=== PATIENT | male | born 1985 | race Caucasian/White ===

== ENCOUNTER 2018-11-21 19:05 | Outpatient (CLI) | payer SELFPAY | END 2018-11-21 19:06 | disposition critical access hospital (66) | LOC: EMS 19:05 | PROVIDERS: ATTEND Surgery | DX: S61.412A Laceration without foreign body of left hand, initial encounter (principal); W26.0XXA Contact with knife, initial encounter; Y92.009 Unspecified place in unspecified non-institutional (private) residence as the place of occurrence of the external cause | CPT/HCPCS: A0425; A0429 ==

== ENCOUNTER 2018-11-21 19:32 | Emergency (ER) | payer SELFPAY ==
[2018-11-21] MEDS ORDERED: TETANUS/DIPHTHERIA/PERTUSSIS 0.5 ML SYRINGE IM ONE (19:45)
[2018-11-21] MEDS ORDERED: HYDROcod/ACETAM 5/325 MG TABLET PO STA (19:54)
[2018-11-21] MEDS ORDERED: LIDOCAINE 2% 10 ML MDV SUBQ STA ×2 (19:55→20:28)
--- NOTE | 2018-11-21 20:05 | ED Physician Documentation ---
PD HPI UPPER EXT INJURY - Stated complaint Stated Complaint: HAND LAC - Chief complaint Chief Complaint: Laceration - History obtained from History obtained from: Patient - History of Present Illness Location: Left, Hand Where injury occurred: Home Timing - onset: Today Improved by: Nothing Associated symptoms: Numbness (R thumb) Contributing factors: No: Anticoagulated Similar symptoms before: Has not had sx before Recently seen: Not recently seen - Additonal information Additional information: This is a 33-year-old presents with complaints that he got caught in the left palm by a knife as he was slicing onions. The skin of vague about what actually happened but does admit to drinking alcohol. The injury occurred about an hour and a half prior to presentation he immediately called 911 they came and dressed the wound and brought him in. He complains that his thumb feels "kind of numb". 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 He is not allergic to any medications. His last tetanus vaccine was 2 years ago. Review of Systems Musculoskeletal: reports: Extremity pain Neurologic: reports: Numbness Psychiatric: denies: Suicidal PD PAST MEDICAL HISTORY - Past Medical History GI: GERD Musculoskeletal: Chronic back pain - Past Surgical History Past Surgical History: No - Present Medications Home Medications: Ambulatory Orders Medication Instructions Recorded Confirmed cephALEXin [Keflex] 250 mg PO Q6H #28 capsule 11/21/18 - Allergies Allergies/Adverse Reactions: Allergies Allergy/AdvReac Type Severity Reaction Status Date / Time No Known Drug Allergies Allergy Verified 11/21/18 19:45 - Social History Does the pt smoke?: Yes Smoking Status: Current every day smoker Does the pt drink ETOH?: Yes Does the pt have substance abuse?: Yes - Immunizations Immunizations are current?: Yes - POLST Patient has POLST: No PD ED PE NORMAL - Vitals Vital signs reviewed: Yes - General General: Alert and oriented X 3, No acute distress, Well developed/nourished - Cardiac Cardiac: RRR - Respiratory Respiratory: No respiratory distress - Derm Derm: Other (There is a deep laceration 7-8 cm long on the left palm that cuts across the thenar eminence to the webspace between the thumb and index finger. There is a parallel laceration distal to this that measures approximately 4-1/2 cm.) - Extremities Extremities: Other (Patient is able to abduct, adduct and oppose the thumb. F lexion intact at the MCP and IP of thumb and MCP, PIP and DIP of remaining digits.) - Neuro Neuro: Alert and oriented X 3, No motor deficit, No sensory deficit, Normal speech, Other (2 point discrimination intact in thumb and all 4 fingers) Results - Vitals Vitals: Vital Signs - 24 hr 11/21/18 11/21/18 19:35 21:55 Temperature 37 C 37.2 C Heart Rate 118 H 83 Respiratory 20 16 Rate Blood Pressure 130/71 150/91 H O2 Saturation 98 98 Oxygen O2 Source Room air Procedures - Laceration (location) Hand left Palmar Length in cm: 11 (1 deep 7 cm lac and 1 more superficial 4 cm laceration distally) Wound type: Linear, Into muscle (The muscle belly of the hyperthenar eminence is significantly disrupted), Clean Neurovascular status: Sensory intact, Motor intact, Vascular intact Tendon involvement: Tendon intact Anesthesia: Lidocaine 2%, Marcaine 0.25% Wound Preparation: Chlorhexadine, Irrigated copiously NS, Wound explored, To the base. No: FB identified Skin layer closure: Nylon, Size #-0 - enter number (5) Other: Patient tolerated well, No complications, Neurovascular intact, Dressing applied, Tetanus UTD PD MEDICAL DECISION MAKING - ED course ED course: Tendons appear to be intact and I did not see any lacerated tendons in the wound. The hyperthenar eminence was pretty significantly disrupted but he is able to oppose the thumb abducted and flex it. Wound was cleansed and the skin was approximated. I spoke to the hand surgeon, Dr Min,At [facility] and they are happy to see the patient in follow-up to see if he requires any further surgical intervention. The patient was instructed to follow-up with them. He did receive Ancef IV and placed on Keflex for 5 days. He was given a hydrocodone prepack at discharge. Departure - Departure Disposition: 01 Home, Self Care Clinical Impression: Laceration of hand Condition: Good Instructions: ED Laceration Hand Follow-Up: [place] [Other] Prescriptions: cephALEXin [Keflex] 250 mg PO Q6H #28 capsule Comments: Take the Keflex as prescribed. You have a few doses of hydrocodone that you can use if needed for pain. Do your best to keep our bandage that we put on clean and dry so that it can stay on for 24 to 48 hours. After removing the bandage you can clean it with soap and water but keep the wound covered during the day. I have arranged follow-up at the [facility] hand clinic. You need to call them to arrange for a appointment at [phone]. Discharge Date/Time: 11/21/18 22:00
[2018-11-21] MEDS ORDERED: BUPIVACAINE 0.25% PF 30 ML VIAL SUBQ STA (20:29)
[2018-11-21] MEDS ORDERED: LIDOCAINE 2% 10 ML MDV ONE (20:42)
[2018-11-21] MEDS ORDERED: ceFAZolin 1 GM in SODIUM CHLORIDE 0.9% MINIBAG 100 ML IV STA (21:16)
[2018-11-21] MEDS ORDERED: CEPHALEXIN 250 MG Prepack 8 CAP BOTTLE PO STA (21:44)
[2018-11-21] MEDS ORDERED: HYDROcod/ACET 5/325 Prepack 4 PO STA (21:44)
[2018-11-21 21:56] VITALS: BP 150/91
== END 2018-11-21 22:00 | disposition home or self-care (01) ==
LOC: EDUNIT# → ED 19:32
DX: S61.412A Laceration without foreign body of left hand, initial encounter (principal); S66.822A Laceration of other specified muscles, fascia and tendons at wrist and hand level, left hand, initial encounter; W26.0XXA Contact with knife, initial encounter; Y93.G1 Activity, food preparation and clean up; Y92.009 Unspecified place in unspecified non-institutional (private) residence as the place of occurrence of the external cause; F17.200 Nicotine dependence, unspecified, uncomplicated
CPT/HCPCS: 12044; 96374; 99283; 99284; A9270

== ENCOUNTER 2018-12-12 12:05 | Emergency (ER) | payer MEDICAID ==
[2018-12-12 12:23] VITALS: BP 168/89
--- NOTE | 2018-12-12 14:13 | ED Physician Documentation ---
PD HPI UPPER EXT INJURY - Stated complaint Stated Complaint: STITCH REMOVAL L HAND - Chief complaint Chief Complaint: Ext Problem - History obtained from History obtained from: Patient - History of Present Illness Location: Left (Lacerated his left, nondominant hand 20 days ago. He did not follow-up at [facility] as recommended. He is here for suture removal. Notes persistent numbness in the left thumb.) Review of Systems Constitutional: reports: Reviewed and negative Throat: reports: Reviewed and negative Cardiac: reports: Reviewed and negative PD PAST MEDICAL HISTORY - Past Medical History GI: GERD Musculoskeletal: Chronic back pain - Past Surgical History Past Surgical History: No - Present Medications Home Medications: Ambulatory Orders Medication Instructions Recorded Confirmed cephALEXin [Keflex] 250 mg PO Q6H #28 capsule 11/21/18 Methylprednisolone [Medrol Dose 1 each PO .PACKAGEINSTRUCTIONS 6 12/12/18 Pack] Days #1 each - Allergies Allergies/Adverse Reactions: Allergies Allergy/AdvReac Type Severity Reaction Status Date / Time No Known Drug Allergies Allergy Verified 12/12/18 12:17 - Social History Does the pt smoke?: Yes Smoking Status: Current every day smoker Does the pt drink ETOH?: Yes Does the pt have substance abuse?: Yes - Immunizations Immunizations are current?: Yes - POLST Patient has POLST: No PD ED PE NORMAL - Vitals Vital signs reviewed: Yes - General General: Alert and oriented X 3, No acute distress - Extremities Extremities: Other (The left hand incision is well approximated, But there is some desquamation on either side of the wound. All the sutures removed during examination he has full range of motion but diminished sensation in the thumb.) - Neuro Neuro: Alert and oriented X 3, Normal speech Results - Vitals Vitals: Vital Signs - 24 hr 12/12/18 12:17 Temperature 36.9 C Heart Rate 90 Respiratory 16 Rate Blood Pressure 168/89 H O2 Saturation 100 Oxygen O2 Source Room air PD MEDICAL DECISION MAKING - ED course ED course: He really wanted to go back to work, he works as a facilities clerk, the wound does not quite look ready for that yet. I recommended that he work with the right hand only pending hand surgery follow-up. Departure - Departure Disposition: 01 Home, Self Care Clinical Impression: Laceration of hand Qualifiers: Encounter type: initial encounter Foreign body presence: without foreign body Laterality: left Qualified Code(s): S61.412A - Laceration without foreign body of left hand, initial encounter Condition: Good Record reviewed to determine appropriate education?: Yes Prescriptions: Methylprednisolone [Medrol Dose Pack] 1 each PO .PACKAGEINSTRUCTIONS 6 Days #1 each Comments: As discussed, we have recommended that she follow-up with the hand surgery center at [facility]. You have failed to do so. I am worried about her long- term healing until you see the hand surgeon. You should call them today for the next available appointment. [phone]. Do not submerge to the left hand. Wear the Velcro wrist splint at all times except when in the shower. Or washing your hands. Your blood pressure was elevated today on check into the emergency department. This does not mean that you have hypertension, it is a common phenomenon to come to the emergency department and have elevated blood pressure. I recommend that you see your primary care physician within the week to have it rechecked when you are feeling better. Forms: Activity restrictions Discharge Date/Time: 12/12/18 14:33
== END 2018-12-12 14:33 | disposition home or self-care (01) ==
LOC: ED 12:05
DX: S61.412D Laceration without foreign body of left hand, subsequent encounter (principal); X58.XXXD Exposure to other specified factors, subsequent encounter; R03.0 Elevated blood-pressure reading, without diagnosis of hypertension; F17.200 Nicotine dependence, unspecified, uncomplicated
CPT/HCPCS: 99282

== ENCOUNTER 2019-06-14 03:24 | Emergency (ER) | payer MEDICAID ==
[2019-06-14 03:50] LABS: BASOPHILS # (AUTO) 0.2 10^3/uL (0.0-0.1); BASOPHILS % (AUTO) 1.2 %; EOSINOPHILS # (AUTO) 0.2 10^3/uL (0.0-0.7); EOSINOPHILS % (AUTO) 1.5 %; HGB - HEMOGLOBIN 16.7 g/dL (14.0-18.0); LYMPHOCYTES # (AUTO) 1.7 10^3/uL (1.5-3.5); LYMPHOCYTES % (AUTO) 12.1 %; MEAN CORPUSCULAR VOLUME 94.3 fL (80.0-94.0); MEAN PLATELET VOLUME 9.9 fL (7.4-11.4); MONOCYTES # (AUTO) 0.9 10^3/uL (0.0-1.0); MONOCYTES % (AUTO) 6.3 %; NEUTROPHILS # (AUTO) 10.9 10^3/uL (1.5-6.6); NEUTROPHILS % (AUTO) 78.3 %; PLT - PLATELET COUNT 254 10^3/uL (130-450); RED BLOOD COUNT 5.06 10^6/uL (4.70-6.10); RED CELL DISTRIBUTION WIDTH 12.3 % (12.0-15.0); WHITE BLOOD COUNT 13.9 x10^3/uL (4.8-10.8)
[2019-06-14 04:02] LABS: ACETAMINOPHEN < 10 ug/mL (10-30); ALBUMIN 4.5 g/dL (3.2-5.5); ALBUMIN/GLOBULIN RATIO 1.2 (1.0-2.2); ALKALINE PHOSPHATASE 79 IU/L (42-121); ALT ALANINE AMINOTRANSFERASE 14 IU/L (10-60); AST ASPARTATE AMINOTRANSFERASE 22 IU/L (10-42); BILIRUBIN,TOTAL 0.4 mg/dL (0.2-1.0); BUN - BLOOD UREA NITROGEN 11 mg/dL (6-20); CALCIUM 8.9 mg/dL (8.5-10.3); CARBON DIOXIDE - CO2 22 mmol/L (21-32); CHLORIDE 107 mmol/L (101-111); CREATININE 0.8 mg/dL (0.6-1.2); GLUCOSE 114 mg/dL (70-100); LIPASE 21 U/L (22-51); SALICYLATE < 6.0 mg/dL; SODIUM 140 mmol/L (135-145); TOTAL PROTEIN 8.4 g/dL (6.7-8.2)
[2019-06-14 04:09] LABS: MUDS CUTOFF CONCENTRATIONS CUTOFF CONC BELOW:
[2019-06-14 04:12] LABS: BILIRUBIN,URINE NEGATIVE (NEGATIVE); GLUCOSE, URINE (UA) NEGATIVE (NEGATIVE); KETONES,URINE (UA) NEGATIVE (NEGATIVE); LEUKOCYTE ESTERASE, URINE NEGATIVE (NEGATIVE); NITRITE,URINE NEGATIVE (NEGATIVE); OCCULT BLOOD,URINE NEGATIVE (NEGATIVE); PROTEIN,URINE NEGATIVE (NEGATIVE); UROBILINOGEN,URINE 0.2 (NORMAL) E.U./dL (NORMAL)
[2019-06-14 04:14] LABS: CLARITY,URINE CLEAR (CLEAR)
--- NOTE | 2019-06-14 04:15 | ED Physician Documentation ---
PD HPI MHE - Stated complaint Stated Complaint: MHE - Chief complaint Chief Complaint: MHE - History obtained from History obtained from: Patient, Police - History of Present Illness Primary symptom: Suicidal ideation, Depression. No: Suicide attempt Timing - onset: Chronic (with worse symptoms the past few weeks) Contributing factors: Other (having difficulties with people he lives with. Also financial. He states he has not had any medications or counseling for about 10 years. He does have intermittent drug use. He has fairly regular alcohol use. He denies alcohol withdrawal symptoms if he does not drink for a bit) Similar symptoms before: Diagnosis (depression) Recently seen: Not recently seen Review of Systems Constitutional: denies: Fever, Chills Nose: denies: Rhinorrhea / runny nose, Congestion Throat: denies: Sore throat Respiratory: denies: Dyspnea, Cough GI: denies: Vomiting, Diarrhea : denies: Dysuria Skin: denies: Rash Musculoskeletal: denies: Back pain Neurologic: denies: Generalized weakness, Altered mental status, Headache, Head injury Psychiatric: reports: Depressed, Suicidal, Anxiety. denies: Insomnia Endocrine: denies: Weight loss Immunocompromised: denies: Immunocompromised PD PAST MEDICAL HISTORY - Past Medical History Past Medical History: Yes Cardiovascular: None Respiratory: None GI: GERD Psych: Depression, Anxiety, Obsessive compulsive disorder Musculoskeletal: Chronic back pain - Past Surgical History Past Surgical History: No - Present Medications Home Medications: Ambulatory Orders Medication Instructions Recorded Confirmed No Known Home Medications 06/14/19 06/14/19 - Allergies Allergies/Adverse Reactions: Allergies Allergy/AdvReac Type Severity Reaction Status Date / Time No Known Drug Allergies Allergy Verified 06/14/19 03:55 - Social History Does the pt smoke?: Yes Smoking Status: Current every day smoker Does the pt drink ETOH?: Yes ETOH Use: Beer, Liquor Does the pt have substance abuse?: Yes Substance Use and Type: Marijuana, Meth, Heroin - Immunizations Immunizations are current?: Yes - POLST Patient has POLST: No PD ED PE NORMAL - Vitals Vital signs reviewed: Yes - General General: Alert and oriented X 3, No acute distress, Well developed/nourished - HEENT HEENT: Moist mucous membranes, Pharynx benign - Neck Neck: Supple, no meningeal sign, No adenopathy, Thyroid normal - Cardiac Cardiac: RRR, No murmur - Respiratory Respiratory: Clear bilaterally - Abdomen Abdomen: Soft, Non tender - Male Male : Deferred - Derm Derm: Normal color, Warm and dry - Extremities Extremities: Normal ROM s pain, No edema - Neuro Neuro: Alert and oriented X 3, 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, No motor deficit, No sensory deficit Eye Opening: Spontaneous Motor: Obeys Commands Verbal: Oriented GCS Score: 15 - Psych Psych: No: Normal affect (somewhat flat) Results - Vitals Vitals: Vital Signs - 24 hr 06/14/19 06/14/19 06/14/19 03:20 06:33 12:28 Temperature 36.8 C 36.6 C Heart Rate 100 96 95 Respiratory 18 16 12 Rate Blood Pressure 148/69 H 148/107 H 140/91 H O2 Saturation 97 95 98 06/14/19 17:33 Temperature 36.8 C Heart Rate 87 Respiratory 16 Rate Blood Pressure 133/80 H O2 Saturation 100 Oxygen O2 Source Room air - Labs Labs: Laboratory Tests 06/14/19 06/14/19 06/14/19 03:36 03:40 03:40 WBC 13.9 H RBC 5.06 Hgb 16.7 Hct 47.7 MCV 94.3 H MCH 33.0 H MCHC 35.0 RDW 12.3 Plt Count 254 MPV 9.9 Neut # (Auto) 10.9 H Lymph # (Auto) 1.7 [place] # (Auto) 0.9 Eos # (Auto) 0.2 Baso # (Auto) 0.2 H Absolute Nucleated RBC 0.00 Nucleated RBC % 0.0 Sodium 140 Potassium 3.6 Chloride 107 Carbon Dioxide 22 Anion Gap 11.0 BUN 11 Creatinine 0.8 Estimated GFR (MDRD) 112 Glucose 114 H Calcium 8.9 Total Bilirubin 0.4 AST 22 ALT 14 Alkaline Phosphatase 79 Total Protein 8.4 H Albumin 4.5 Globulin 3.9 Albumin/Globulin Ratio 1.2 Lipase 21 L TSH Urine Color YELLOW Urine Clarity CLEAR Urine pH 5.0 Ur Specific [place] >=1.030 H Urine Protein NEGATIVE Urine Glucose (UA) NEGATIVE Urine Ketones NEGATIVE Urine Occult Blood NEGATIVE Urine Nitrite NEGATIVE Urine Bilirubin NEGATIVE Urine Urobilinogen 0.2 (NORMAL) Ur Leukocyte Esterase NEGATIVE Ur Microscopic Review NOT INDICATED Urine Culture Comments NOT INDICATED Salicylates < 6.0 Urine Opiates Screen NEGATIVE Ur Oxycodone Screen NEGATIVE Urine Methadone Screen NEGATIVE Ur Propoxyphene Screen NEGATIVE Acetaminophen < 10 L Ur Barbiturates Screen NEGATIVE Ur Tricyclics Screen NEGATIVE Ur Phencyclidine Scrn NEGATIVE Ur Amphetamine Screen NEGATIVE U Methamphetamines Scrn NEGATIVE U Benzodiazepines Scrn NEGATIVE Urine Cocaine Screen NEGATIVE U Cannabinoids Screen POSITIVE H Ethyl Alcohol 30.7 06/14/19 03:40 WBC RBC Hgb Hct MCV MCH MCHC RDW Plt Count MPV Neut # (Auto) Lymph # (Auto) [place] # (Auto) Eos # (Auto) Baso # (Auto) Absolute Nucleated RBC Nucleated RBC % Sodium Potassium Chloride Carbon Dioxide Anion Gap BUN Creatinine Estimated GFR (MDRD) Glucose Calcium Total Bilirubin AST ALT Alkaline Phosphatase Total Protein Albumin Globulin Albumin/Globulin Ratio Lipase TSH 2.34 Urine Color Urine Clarity Urine pH Ur Specific [place] Urine Protein Urine Glucose (UA) Urine Ketones Urine Occult Blood Urine Nitrite Urine Bilirubin Urine Urobilinogen Ur Leukocyte Esterase Ur Microscopic Review Urine Culture Comments Salicylates Urine Opiates Screen Ur Oxycodone Screen Urine Methadone Screen Ur Propoxyphene Screen Acetaminophen Ur Barbiturates Screen Ur Tricyclics Screen Ur Phencyclidine Scrn Ur Amphetamine Screen U Methamphetamines Scrn U Benzodiazepines Scrn Urine Cocaine Screen U Cannabinoids Screen Ethyl Alcohol PD MEDICAL DECISION MAKING - ED course Complexity details: considered differential (Depression and suicidal ideation was requesting help and called the police. He comes here voluntarily. We will check his alcohol level and labs and get social work to talk with him soon as they come in in the morning. He is informed of the timeframe and that we do not have social work overnight.), d/w patient Departure - Departure Disposition: 65 Psych Hosp/Unit DC/Xfer Clinical Impression: Suicidal ideation Depression Qualifiers: Depression Type: unspecified Qualified Code(s): F32.9 - Major depressive disorder, single episode, unspecified Condition: Stable Record reviewed to determine appropriate education?: Yes Discharge Date/Time: 06/14/19 18:20
[2019-06-14 04:21] LABS: AMPHETAMINE SCREEN,URINE NEGATIVE (NEGATIVE); BENZODIAZEPINES SCREEN, URINE NEGATIVE (NEGATIVE); COCAINE SCREEN URINE NEGATIVE (NEGATIVE); METHADONE SCREEN, URINE NEGATIVE (NEGATIVE); METHAMPHETAMINES SCREEN, URINE NEGATIVE (NEGATIVE); OPIATE SCREEN, URINE NEGATIVE (NEGATIVE); OXYCODONE SCREEN, URINE NEGATIVE (NEGATIVE); PROPOXYPHENE SCREEN, URINE NEGATIVE (NEGATIVE); TRICYCLIC ANTIDEPRESSANT,URINE NEGATIVE (NEGATIVE)
[2019-06-14] MEDS ORDERED: LORazepam 1 MG TABLET PO STA (05:05)
--- NOTE | 2019-06-14 16:20 | ED Physician Documentation ---
ED Addendum - Addendum Addendum: 06/14/19 16:19 Patient is accepted to [facility] by Bridger DANIEL at 1600. COBRA forms completed. He is a voluntary admission. Social work did come and evaluate the patient and facilitated placement. This document was made in part using voice recognition software. While efforts are made to proofread this document, sound alike and grammatical errors may occur. Departure - Departure Disposition: 65 Psych Hosp/Unit DC/Xfer Clinical Impression: Suicidal ideation Depression Qualifiers: Depression Type: unspecified Qualified Code(s): F32.9 - Major depressive disorder, single episode, unspecified Condition: Stable
[2019-06-14 17:34] VITALS: BP 133/80
== END 2019-06-14 18:20 ==
LOC: EDUNIT# → ED 03:24 → EEVIPCON 03:24 → ED 18:20
DX: R45.851 Suicidal ideations (principal); F32.9 Major depressive disorder, single episode, unspecified; F42.9 Obsessive-compulsive disorder, unspecified; F41.9 Anxiety disorder, unspecified; F17.200 Nicotine dependence, unspecified, uncomplicated; Z72.89 Other problems related to lifestyle
CPT/HCPCS: 36415; 80053; 80306; 80307; 80320; 80329; 81003; 83690; 84443; 85025; 99283; 99285; J8499; 81001; 87086